=== PATIENT | female | born 1950 | race Caucasian/White ===

== ENCOUNTER 2017-01-20 09:09 | Inpatient (IN) | payer MEDICARE, MEDICAID ==
[~2017-01-20] VITALS: Ht 167.6 cm; Wt 51.5 kg
[~2017-01-20 09:09] MED LIST: ACET-709 PO; CYCL1DRO; FLUO60TA PO; FOLI-17 PO; FURO40TA6 PO; GABA600T2 PO; GLIP10TA20; HYDR-3240 PO; INSU100C5 SQ-INSULIN; INSU100I13; INSU100V13 SQ; MAGN400T26 PO; METF-86; METH10CP2 PO; ROSU20TA PO; SODI650T PO; THIA100T6 PO
[2017-01-20] MEDS ORDERED: CYCL1DRO EACHEYE (09:49)
[2017-01-20] MEDS ORDERED: SODIUM CHLORIDE 0.9% 1,000ML IVBOLUS ONE (10:00)
[2017-01-20 10:01] LABS: ASPARTATE AMINO TRANSFERASE 11 U/L (15-37); BLOOD UREA NITROGEN 20 mg/dL (7-18)
[2017-01-20 10:06] LABS: IS PT STATUS REG ER OR PRE ER? YES
[2017-01-20 10:14] LABS: PATH.CAST-FLAG NOT PRESENT; SPERM-FLAG NOT PRESENT; SRC-FLAG NOT PRESENT; XTAL-FLAG NOT PRESENT; YLC-FLAG NOT PRESENT
[2017-01-20] MEDS ORDERED: POTASSIUM CHLORIDE 10% 40 MEQ/30 ML UDC PO ONE (10:30)
[2017-01-20] MEDS ORDERED: POTASSIUM CHLORIDE 10% 20 MEQ/15 ML UDC ONE (10:50)
[2017-01-20] MEDS ORDERED: POLYETHYLENE GLYCOL 17 GM PACKET PO PRN (12:30)
[2017-01-20] MEDS ORDERED: ACETAMINOPHEN 325 MG TABLET PO PRN (12:30)
[2017-01-20] MEDS ORDERED: ONDANSETRON 2MG/ML, 2ML IVP PRN (12:30)
[2017-01-20] MEDS ORDERED: BISACODYL 10 MG SUPP PR PRN (12:30)
[2017-01-20] MEDS ORDERED: DOCUSATE 100 MG CAPSULE PO PRN (12:30)
[2017-01-20] MEDS ORDERED: LABETALOL 5MG/ML, 20ML IV PRN ×2 (12:30→13:29)
[2017-01-20] MEDS: ENOXAPARIN 40 MG/0.4 ML SQ SCH (12:30)
[2017-01-20 13:15] VITALS: BP 101/62
[2017-01-20] MEDS ORDERED: MAGNESIUM SULFATE PMX 2GM/50ML 50 ML IV ONE (13:30)
[2017-01-20] MEDS: D5%-0.45NACL+KCL 20MEQ 1,000 ML IV SCH (14:36)
[2017-01-20] MEDS ORDERED: OMNIPAQUE 350 MG/ML, 100ML BOTTLE ONE (16:48)
[2017-01-20] MEDS: HYDROcodone/APAP 5/325 TABLET PO PRN ×2 (17:08→23:07)
[2017-01-20] MEDS: POTASSIUM CHLORIDE 20 MEQ TAB.ER.PRT PO SCH (17:08)
[2017-01-20] MEDS: INSULIN REGULAR 100 UNITS/ML, 3ML VIAL SQ-INSULIN SCH ×2 (18:01→21:00)
[2017-01-20 19:44] VITALS: BP 103/71
[2017-01-20] MEDS: TEMPLATE NON-FORMULARY MED. (Cyclosporine (Restasis) 1 DROP) EACHEYE SCH (21:00)
[2017-01-20] MEDS: GABAPENTIN 300 MG CAPSULE PO SCH (21:00)
[2017-01-21] MEDS: D5%-0.45NACL+KCL 20MEQ 1,000 ML IV SCH (00:52)
[2017-01-21 02:20] VITALS: BP 100/65
[2017-01-21 06:17] LABS: BLOOD UREA NITROGEN 14 mg/dL (7-18)
[2017-01-21 06:47] VITALS: BP 104/64
[2017-01-21] MEDS: INSULIN REGULAR 100 UNITS/ML, 3ML VIAL SQ-INSULIN SCH ×4 (07:59→22:08)
[2017-01-21] MEDS: POTASSIUM CHLORIDE 20 MEQ TAB.ER.PRT PO SCH (08:00)
[2017-01-21] MEDS: HYDROcodone/APAP 5/325 TABLET PO PRN ×4 (08:00→21:08)
[2017-01-21] MEDS: FLUOXETINE 20 MG CAPSULE PO SCH (08:00)
[2017-01-21] MEDS: GABAPENTIN 300 MG CAPSULE PO SCH ×2 (08:00→21:08)
[2017-01-21] MEDS: TEMPLATE NON-FORMULARY MED. (Cyclosporine (Restasis) 1 DROP) EACHEYE SCH ×2 (09:00→21:00)
[2017-01-21] MEDS ORDERED: INSULIN DETEMIR 100 UNITS/ML, PEN SQ-INSULIN SCH (09:00)
[2017-01-21] MEDS: ENOXAPARIN 40 MG/0.4 ML SQ SCH (11:41)
[2017-01-21] MEDS: INSULIN DETEMIR 100 UNITS/ML, PEN SQ-INSULIN SCH (11:42)
[2017-01-21 13:53] VITALS: BP 95/60
[2017-01-21 18:42] VITALS: BP 103/70
[2017-01-22 00:50] VITALS: BP 136/85
[2017-01-22] MEDS: HYDROcodone/APAP 5/325 TABLET PO PRN ×2 (01:14→08:13)
[2017-01-22 05:58] LABS: BLOOD UREA NITROGEN 12 mg/dL (7-18)
[2017-01-22 07:01] VITALS: BP 120/78
[2017-01-22] MEDS: INSULIN REGULAR 100 UNITS/ML, 3ML VIAL SQ-INSULIN SCH ×2 (08:15→11:03)
[2017-01-22] MEDS: INSULIN DETEMIR 100 UNITS/ML, PEN SQ-INSULIN SCH (08:16)
[2017-01-22] MEDS: GABAPENTIN 300 MG CAPSULE PO SCH (08:16)
[2017-01-22] MEDS: FLUOXETINE 20 MG CAPSULE PO SCH (08:17)
[2017-01-22] MEDS ORDERED: INSULIN DETEMIR 100 UNITS/ML, PEN SQ-INSULIN SCH (09:00)
[2017-01-22] MEDS: TEMPLATE NON-FORMULARY MED. (Cyclosporine (Restasis) 1 DROP) EACHEYE SCH (09:00)
[2017-01-22] MEDS ORDERED: HYDR-3240 PO (10:04)
[2017-01-22] MEDS ORDERED: INSU100I28 SQ-INSULIN (10:04)
[2017-01-22] MEDS: ENOXAPARIN 40 MG/0.4 ML SQ SCH (12:30)
[2017-01-22 12:35] VITALS: BP 99/68
== END 2017-01-22 13:35 | disposition home or self-care (01) | DRG 640 ==
LOC: ED 09:17 → EDIP 11:48 → 3NE 13:25 → DCLOUNGE 01-22 13:05
PROVIDERS: ADMIT Family Medicine; ATTEND Family Medicine
DX: E87.6 Hypokalemia (principal); N17.0 Acute kidney failure with tubular necrosis; E11.649 Type 2 diabetes mellitus with hypoglycemia without coma; K21.9 Gastro-esophageal reflux disease without esophagitis; G62.9 Polyneuropathy, unspecified; E78.5 Hyperlipidemia, unspecified; E86.0 Dehydration; F32.9 Major depressive disorder, single episode, unspecified; F41.9 Anxiety disorder, unspecified; I11.9 Hypertensive heart disease without heart failure; M48.06 Spinal stenosis, lumbar region; R29.6 Repeated falls; W18.30XA Fall on same level, unspecified, initial encounter; I95.9 Hypotension, unspecified; Z66 Do not resuscitate; Y92.000 Kitchen of unspecified non-institutional (private) residence as the place of occurrence of the external cause; Z79.4 Long term (current) use of insulin; Z98.51 Tubal ligation status
CPT/HCPCS: 36415; 70450; 71010; 71260; 72148; 80048; 80053; 81001; 82607; 82746; 82947; 82962; 83036; 83735; 84443; 84484; 85025; 93005; 96360; 96361; J1650; J1815; Q9967; J3475; J3480; J7030

== ENCOUNTER 2017-02-15 08:50 | Inpatient (IN) | payer MEDICARE, MEDICAID ==
[~2017-02-15] VITALS: Ht 165.1 cm; Wt 50.6 kg
[~2017-02-15 08:50] MED LIST changes: +CYCL1DRO EACHEYE; +INSU100I28 SQ-INSULIN
[2017-02-15] MEDS ORDERED: SODIUM CHLORIDE 0.9% 1,000 ML IV ONE (09:11)
[2017-02-15] MEDS ORDERED: SODIUM CHLORIDE 0.9% 1,000ML IVBOLUS ONE ×2 (09:30→10:30)
[2017-02-15] MEDS ORDERED: PLEASE ENTER HEIGHT AND WEIGHT MC SCH (09:30)
[2017-02-15] MEDS ORDERED: PLEASE ENTER ALLERGIES MC SCH ×2 (09:30)
[2017-02-15 09:41] LABS: PH, VENOUS 6.806 pH (7.320-7.420)
[2017-02-15 09:50] LABS: ASPARTATE AMINO TRANSFERASE 14 U/L (15-37); BLOOD UREA NITROGEN 49 mg/dL (7-18)
[2017-02-15 10:09] LABS: IS PT STATUS REG ER OR PRE ER? YES
[2017-02-15] MEDS ORDERED: SODIUM BICARB 8.4%, 50ML SYRINGE IVPush STA (10:14)
[2017-02-15] MEDS ORDERED: SODIUM BICARBONATE 1 MEQ/ML, 50ML VIAL ONE (10:25)
[2017-02-15] MEDS ORDERED: ACETAMINOPHEN 325 MG TABLET PO PRN (11:00)
[2017-02-15] MEDS ORDERED: ONDANSETRON 2MG/ML, 2ML IVPush PRN (11:00)
[2017-02-15] MEDS ORDERED: POLYETHYLENE GLYCOL 17 GM PACKET PO PRN (11:00)
[2017-02-15] MEDS ORDERED: TEMAZEPAM 15 MG CAPSULE PO PRN (11:00)
[2017-02-15] MEDS: REGULAR INSULIN 62.5 UNITS in SODIUM CHLORIDE 0.9% 249.375 ML IV PRN ×3 (11:00→20:00)
[2017-02-15] MEDS ORDERED: HEPARIN 5,000 UNITS/ML, 1ML ONE (11:49)
[2017-02-15] MEDS: HEPARIN 5,000 UNITS/ML, 1ML SQ SCH ×2 (11:54→19:44)
[2017-02-15] MEDS: POTASSIUM CHLORIDE 20 MEQ in SODIUM CHLORIDE 0.45% 1,000 ML IV SCH ×3 (11:57→22:06)
[2017-02-15 14:00] VITALS: BP 119/89
[2017-02-15 14:45] LABS: BLOOD UREA NITROGEN 47 mg/dL (7-18)
[2017-02-15] MEDS: D5%-0.45NACL+KCL 20MEQ 1,000 ML IV SCH ×3 (15:59→23:32)
[2017-02-15 19:06] LABS: BLOOD UREA NITROGEN 43 mg/dL (7-18)
[2017-02-15] MEDS ORDERED: GABAPENTIN 300 MG PO SCH (21:00)
[2017-02-15] MEDS: (Cyclosporine (Restasis) 1 DROP) EACHEYE SCH (21:00)
[2017-02-15] MEDS: FAMOTIDINE 20 MG/2 ML IVPush SCH (21:04)
[2017-02-15] MEDS ORDERED: GABAPENTIN 300 MG CAPSULE PO SCH (21:07)
[2017-02-15] MEDS: GABAPENTIN 300 MG CAPSULE PO SCH (22:14)
[2017-02-15 22:43] LABS: BLOOD UREA NITROGEN 41 mg/dL (7-18)
[2017-02-16 02:57] LABS: BLOOD UREA NITROGEN 41 mg/dL (7-18)
[2017-02-16] MEDS: POTASSIUM CHLORIDE 20 MEQ in SODIUM CHLORIDE 0.45% 1,000 ML IV SCH ×5 (03:09→23:21)
[2017-02-16] MEDS: HEPARIN 5,000 UNITS/ML, 1ML SQ SCH ×3 (03:44→19:33)
[2017-02-16 04:00] VITALS: BP 87/49
[2017-02-16] MEDS: D5%-0.45NACL+KCL 20MEQ 1,000 ML IV SCH ×3 (05:27→15:23)
[2017-02-16 05:50] LABS: DIFF TOTAL CELLS COUNTED 100 CELL DIFF
[2017-02-16 05:52] LABS: VERIFY COUNTS? YES
[2017-02-16 05:53] LABS: ANISOCYTOSIS 1+; HYPOCHROMIA 1+; POLYCHROMASIA 1+
[2017-02-16 05:55] LABS: LARGE PLATELETS 1+
[2017-02-16 06:48] LABS: ASPARTATE AMINO TRANSFERASE 60 U/L (15-37); BLOOD UREA NITROGEN 39 mg/dL (7-18)
[2017-02-16] MEDS: FLUOXETINE HCL 80 MG PO SCH (09:00)
[2017-02-16] MEDS: (Cyclosporine (Restasis) 1 DROP) EACHEYE SCH ×2 (09:00→20:55)
[2017-02-16] MEDS: FAMOTIDINE 20 MG/2 ML IVPush SCH ×2 (10:15→20:55)
[2017-02-16] MEDS: SENNA/DOCUSATE TABLET PO SCH (10:15)
[2017-02-16] MEDS: GABAPENTIN 300 MG CAPSULE PO SCH ×2 (10:15→20:54)
[2017-02-16 11:57] LABS: BLOOD UREA NITROGEN 35 mg/dL (7-18)
[2017-02-16] MEDS: REGULAR INSULIN 62.5 UNITS in SODIUM CHLORIDE 0.9% 249.375 ML IV PRN (13:24)
[2017-02-16 14:23] LABS: BLOOD UREA NITROGEN 35 mg/dL (7-18)
[2017-02-16 18:24] LABS: BLOOD UREA NITROGEN 32 mg/dL (7-18)
[2017-02-17] MEDS: D5%-0.45NACL+KCL 20MEQ 1,000 ML IV SCH ×2 (00:04→08:30)
[2017-02-17] MEDS: HEPARIN 5,000 UNITS/ML, 1ML SQ SCH ×3 (03:00→18:41)
[2017-02-17 04:00] VITALS: BP 122/77
[2017-02-17] MEDS: POTASSIUM CHLORIDE 20 MEQ in SODIUM CHLORIDE 0.45% 1,000 ML IV SCH (04:24)
[2017-02-17 05:10] LABS: BLOOD UREA NITROGEN 24 mg/dL (7-18)
[2017-02-17] MEDS ORDERED: POTASSIUM CHLORIDE 20 MEQ TAB.ER.PRT PO ONE (07:30)
[2017-02-17] MEDS: (Cyclosporine (Restasis) 1 DROP) EACHEYE SCH ×2 (09:00→20:35)
[2017-02-17] MEDS: FLUOXETINE HCL 80 MG PO SCH (09:00)
[2017-02-17] MEDS: SENNA/DOCUSATE TABLET PO SCH (09:21)
[2017-02-17] MEDS: GABAPENTIN 300 MG CAPSULE PO SCH ×2 (09:21→20:34)
[2017-02-17] MEDS ORDERED: INSULIN ASPART 100 UNITS/ML, PEN ONE (09:30)
[2017-02-17] MEDS ORDERED: INSULIN DETEMIR 100 UNITS/ML, PEN ONE (09:30)
[2017-02-17] MEDS: INSULIN DETEMIR 100 UNITS/ML, PEN SQ-INSULIN SCH ×2 (09:38→20:35)
[2017-02-17] MEDS ORDERED: D5%-0.45NACL+KCL 20MEQ 1,000 ML IV SCH ×2 (10:59)
[2017-02-17] MEDS: INSULIN ASPART 100 UNITS/ML, PEN SQ-INSULIN SCH ×3 (11:00→20:34)
[2017-02-17 13:54] VITALS: BP 103/68
[2017-02-17 20:29] VITALS: BP 103/68
[2017-02-18 00:55] VITALS: BP 123/81
[2017-02-18] MEDS: HEPARIN 5,000 UNITS/ML, 1ML SQ SCH ×2 (02:31→11:26)
[2017-02-18 04:45] LABS: BLOOD UREA NITROGEN 17 mg/dL (7-18)
[2017-02-18] MEDS: INSULIN ASPART 100 UNITS/ML, PEN SQ-INSULIN SCH ×2 (07:03→11:33)
[2017-02-18] MEDS ORDERED: POTASSIUM CHLORIDE 20 MEQ TAB.ER.PRT PO ONE (07:30)
[2017-02-18] MEDS: FLUOXETINE HCL 80 MG PO SCH (08:10)
[2017-02-18] MEDS: (Cyclosporine (Restasis) 1 DROP) EACHEYE SCH (08:10)
[2017-02-18] MEDS: GABAPENTIN 300 MG CAPSULE PO SCH (08:10)
[2017-02-18 08:11] VITALS: BP 104/69
[2017-02-18] MEDS ORDERED: SENNA/DOCUSATE TABLET PO SCH (09:00)
[2017-02-18] MEDS: INSULIN DETEMIR 100 UNITS/ML, PEN SQ-INSULIN SCH (09:32)
[2017-02-18] MEDS ORDERED: INSU100I28 SQ-INSULIN (11:55)
== END 2017-02-18 13:20 | disposition home or self-care (01) | DRG 637 ==
LOC: ED 10:58 → EDIP 10:59 → ED 11:46 → CCU 13:28 → 3NW 02-17 13:51 → DCLOUNGE 02-18 13:07
DX: E10.10 Type 1 diabetes mellitus with ketoacidosis without coma (principal); N17.0 Acute kidney failure with tubular necrosis; E87.1 Hypo-osmolality and hyponatremia; E10.42 Type 1 diabetes mellitus with diabetic polyneuropathy; D72.829 Elevated white blood cell count, unspecified; E10.21 Type 1 diabetes mellitus with diabetic nephropathy; E78.5 Hyperlipidemia, unspecified; E86.0 Dehydration; I10 Essential (primary) hypertension; K21.9 Gastro-esophageal reflux disease without esophagitis; D72.828 Other elevated white blood cell count; I48.91 Unspecified atrial fibrillation; Z89.422 Acquired absence of other left toe(s); Z98.51 Tubal ligation status
CPT/HCPCS: 36415; 71010; 80048; 80053; 80061; 81001; 82010; 82803; 82947; 82962; 83690; 83735; 83880; 83930; 84100; 84443; 84484; 85025; 87081; 93005; 96361; 96374; J1644; J1815; J3480; J7030; J7050; S0028

== ENCOUNTER → 2017-02-21 | Outpatient (CLI) | payer OTHER, MEDICAID ==
[2017-02-21 16:04] LABS: BLOOD UREA NITROGEN 15 mg/dL (7-18)
== END | disposition home or self-care (01) ==
LOC: CFH 14:56
PROVIDERS: ATTEND Family Medicine
DX: R22.43 Localized swelling, mass and lump, lower limb, bilateral (principal); R06.02 Shortness of breath; K44.9 Diaphragmatic hernia without obstruction or gangrene; N17.9 Acute kidney failure, unspecified; R60.9 Edema, unspecified
CPT/HCPCS: 36415; 71020; 80048; 83880; 93970

== ENCOUNTER 2017-11-27 10:19 | Emergency (ER) | payer MEDICARE, MEDICAID ==
[~2017-11-27] VITALS: Ht 165.1 cm; Wt 45.0 kg
[~2017-11-27 10:19] MED LIST changes: +GLIP-164; -GLIP10TA20; +METF-162; -METF-86
[2017-11-27 10:20] VITALS: BP 153/102
[2017-11-27] MEDS ORDERED: BACITRACIN ZINC OINT 500U/GM, 0.9 GM ONE (11:20)
== END 2017-11-27 12:23 | disposition home or self-care (01) ==
LOC: ED 11:50
DX: S00.91XA Abrasion of unspecified part of head, initial encounter (principal); E11.9 Type 2 diabetes mellitus without complications; W01.0XXA Fall on same level from slipping, tripping and stumbling without subsequent striking against object, initial encounter; Y93.K1 Activity, walking an animal; Y92.89 Other specified places as the place of occurrence of the external cause; Y99.8 Other external cause status
CPT/HCPCS: 99283